=== PATIENT | female | born 1960 | race Two or more races ===

== ENCOUNTER → 2017-03-08 | Outpatient (CLI) | payer MEDICARE ==
[~2017-03-08] MED LIST: ACYC-114 PO; AMIL5TAB2 PO; AMIT25TA PO; AMLO10TA2 PO; BUSP10TA PO; CELE200C PO; CITA10TA4 PO; CITA40TA5 PO; ESTR1TAB15 PO; FOLI-17 PO; HYDR-3144 PO; HYDR-3240 PO; LEVO100V PO; LEVO150T5 PO; LOSA100T6 PO; LOSA1TAB17 PO; METH2.5T PO; METH2.5T25 PO; NABU750T PO; OMEP-110 PO; POTA10TA5 PO; POTA20TA6 PO; POTASSIUM 10MEQ; PRED5TAB PO; PRED5TAB19 PO; RITU10VI IV; TOCI162D SC; TRAM50TA2 PO; VALA500T PO; [UNRECOGNIZED DRUG - OTHER]; lovastatin PO
[2017-03-08 12:50] LABS: ASPARTATE AMINO TRANSFERASE 22 U/L (15-37); BLOOD UREA NITROGEN 12 mg/dL (7-18)
== END | disposition home or self-care (01) ==
LOC: STAR 11:14 → MERGE 11:30
PROVIDERS: ATTEND Neurological Surgery
DX: Z01.818 Encounter for other preprocedural examination (principal); I77.810 Thoracic aortic ectasia; M51.36 Other intervertebral disc degeneration, lumbar region; M51.37 Other intervertebral disc degeneration, lumbosacral region; R79.1 Abnormal coagulation profile
CPT/HCPCS: 36415; 71020; 80053; 81003; 85025; 85610; 85730; 93005

== ENCOUNTER 2017-03-15 09:10 | Inpatient (IN) | payer MEDICARE ==
[~2017-03-15] VITALS: Ht 160 cm; Wt 96.7 kg
[~2017-03-15 09:10] MED LIST changes: +BACITRACIN 50,000 UNIT ONE; +BUPIVACAINE/PF 0.25% ONE; +BUPIVACAINE/PF-EPI 0.5% 1:200K ONE; +THROMBIN 5,000 UNIT VIAL TP ONE
[2017-03-15] MEDS ORDERED: LACTATED RINGERS 1,000 ML IV SCH (10:28)
[2017-03-15 10:29] VITALS: BP 128/80
[2017-03-15] MEDS ORDERED: FENTANYL PF 250 MCG/5ML ONE (11:10)
[2017-03-15] MEDS ORDERED: MIDAZOLAM 1 MG/ML, 2ML ONE (11:10)
[2017-03-15] MEDS ORDERED: HYDROCORTISONE 100 MG INJ. ONE (12:29)
[2017-03-15] MEDS ORDERED: ONDANSETRON 2MG/ML, 2ML ONE (12:30)
[2017-03-15] MEDS ORDERED: ROCURONIUM 10 MG/ML ONE (12:30)
[2017-03-15] MEDS ORDERED: CEFAZOLIN 1,000 MG ONE (12:30)
[2017-03-15] MEDS ORDERED: PROPOFOL 10 MG/ML, 20ML ONE (12:30)
[2017-03-15] MEDS ORDERED: BUPIVACAINE/PF-EPI 0.5% 1:200K INFIL ONE (13:10)
[2017-03-15] MEDS ORDERED: FENTANYL PF 100 MCG/2ML EPIDPUSH ONE (13:11)
[2017-03-15] MEDS ORDERED: FENTANYL PF 100 MCG/2ML ONE (14:10)
[2017-03-15] MEDS ORDERED: PROMETHAZINE 25 MG/ML, 1ML IV PRN (16:00)
[2017-03-15] MEDS ORDERED: PHARMACY MAY ADJ FOR RENAL FX MC PRN (16:00)
[2017-03-15] MEDS ORDERED: LABETALOL 5MG/ML, 20ML IVPush PRN (16:00)
[2017-03-15] MEDS ORDERED: DIPHENHYDRAMINE 50 MG/ML, 1ML IVPush PRN (16:00)
[2017-03-15] MEDS ORDERED: LABETALOL 5MG/ML, 20ML IV PRN (16:00)
[2017-03-15] MEDS ORDERED: MEPERIDINE/PF 25MG/0.5ML IVPush PRN (16:00)
[2017-03-15] MEDS ORDERED: HYDROmorphone 2 MG/ML, 1ML IM PRN (16:00)
[2017-03-15] MEDS ORDERED: ONDANSETRON 2MG/ML, 2ML IVPush PRN ×2 (16:00)
[2017-03-15] MEDS ORDERED: HYDROcodone/APAP 5/325 TABLET PO PRN (16:00)
[2017-03-15] MEDS ORDERED: PROMETHAZINE 25 MG/ML, 1ML IM PRN (16:00)
[2017-03-15] MEDS ORDERED: HYDROmorphone 1 MG/ML, 1ML IV PRN (16:00)
[2017-03-15] MEDS ORDERED: BISACODYL 10 MG SUPP PR PRN (16:00)
[2017-03-15] MEDS ORDERED: FENTANYL PF 100 MCG/2ML IV PRN (16:00)
[2017-03-15] MEDS ORDERED: HYDROcodone/APAP 10/325 MG TABLET PO PRN (16:00)
[2017-03-15] MEDS ORDERED: OXYcodone 5 MG/5 ML ORAL.SOL UDC PO PRN (16:00)
[2017-03-15] MEDS ORDERED: SENNA/DOCUSATE TABLET PO PRN (16:00)
[2017-03-15] MEDS ORDERED: hydrALAzine 20 MG/ML, 1ML IV PRN (16:00)
[2017-03-15] MEDS ORDERED: ACETAMINOPHEN 325 MG TABLET PO PRN (16:00)
[2017-03-15] MEDS ORDERED: OXYcodone/APAP 5/325MG TABLET PO PRN (16:00)
[2017-03-15] MEDS ORDERED: OXYcodone 5 MG/5 ML ORAL.SOL UDC ONE (16:30)
[2017-03-15] MEDS: NS + 20MEQ KCL 1,000 ML IV SCH (18:17)
[2017-03-15] MEDS: CEFAZOLIN PMX 1GM/50ML 50 ML IVPB SCH (18:18)
[2017-03-15] MEDS: METHOTREXATE MC SCH (18:37)
[2017-03-15 20:28] VITALS: BP 122/71
[2017-03-15] MEDS: VALACYCLOVIR 500MG TABLET PO SCH (22:25)
[2017-03-15] MEDS: SODIUM CHLORIDE FLUSH 10ML SYR IVF SCH (22:25)
[2017-03-15 23:05] VITALS: BP 111/74
[2017-03-16] MEDS: METHOCARBAMOL 750 MG TABLET PO PRN ×3 (01:05→17:09)
[2017-03-16] MEDS: HYDROmorphone 2MG TABLET PO PRN ×8 (01:05→20:57)
[2017-03-16] MEDS: METHOTREXATE MC SCH ×3 (02:00→11:38)
[2017-03-16] MEDS: CEFAZOLIN PMX 1GM/50ML 50 ML IVPB SCH (02:21)
[2017-03-16 03:52] VITALS: BP 136/88
[2017-03-16] MEDS: LEVOTHYROXINE 150 MCG TABLET PO SCH (05:14)
[2017-03-16] MEDS: NS + 20MEQ KCL 1,000 ML IV SCH (06:26)
[2017-03-16 06:55] VITALS: BP 113/60
[2017-03-16] MEDS ORDERED: MORPHINE SULFATE 4 MG/ML, 1ML IV PRN ×2 (08:30)
[2017-03-16] MEDS ORDERED: METHOTREXATE 2.5 MG TABLET PO SCH (09:00)
[2017-03-16] MEDS: SODIUM CHLORIDE FLUSH 10ML SYR IVF SCH ×2 (09:09→20:57)
[2017-03-16] MEDS: FOLIC ACID 1 MG TABLET PO SCH (09:13)
[2017-03-16] MEDS: CITALOPRAM 20 MG TABLET PO SCH (09:13)
[2017-03-16] MEDS: BUSPIRONE 10 MG TABLET PO SCH (09:13)
[2017-03-16] MEDS: POTASSIUM CHLORIDE 10 MEQ TABLET.ER PO SCH (09:14)
[2017-03-16] MEDS: AMILORIDE 5 MG TABLET PO SCH (09:15)
[2017-03-16] MEDS: AMLODIPINE 5 MG TABLET PO SCH (09:15)
[2017-03-16] MEDS ORDERED: DEXAMETHASONE 4 MG/ML, 1ML IV ONE ×2 (10:00→18:00)
[2017-03-16 13:36] VITALS: BP 108/61
[2017-03-16] MEDS ORDERED: NS + 20MEQ KCL 1,000 ML IV SCH (15:00)
[2017-03-16 18:53] VITALS: BP 141/81
[2017-03-16] MEDS: VALACYCLOVIR 500MG TABLET PO SCH (20:57)
[2017-03-17] MEDS: METHOCARBAMOL 750 MG TABLET PO PRN ×3 (00:37→17:46)
[2017-03-17] MEDS: HYDROmorphone 2MG TABLET PO PRN ×7 (00:37→22:11)
[2017-03-17 00:46] VITALS: BP 108/66
[2017-03-17] MEDS: METHOTREXATE MC SCH ×4 (01:49→23:36)
[2017-03-17] MEDS: LEVOTHYROXINE 150 MCG TABLET PO SCH (06:44)
[2017-03-17 07:33] VITALS: BP 118/67
[2017-03-17] MEDS: AMILORIDE 5 MG TABLET PO SCH (09:00)
[2017-03-17] MEDS: CITALOPRAM 20 MG TABLET PO SCH (09:14)
[2017-03-17] MEDS: BUSPIRONE 10 MG TABLET PO SCH (09:14)
[2017-03-17] MEDS: FOLIC ACID 1 MG TABLET PO SCH (09:15)
[2017-03-17] MEDS: POTASSIUM CHLORIDE 10 MEQ TABLET.ER PO SCH (09:16)
[2017-03-17] MEDS: AMLODIPINE 5 MG TABLET PO SCH (09:16)
[2017-03-17] MEDS: SODIUM CHLORIDE FLUSH 10ML SYR IVF SCH ×2 (09:19→22:07)
[2017-03-17 12:43] VITALS: BP 122/73
[2017-03-17 18:37] VITALS: BP 104/64
[2017-03-17] MEDS ORDERED: DIPHENHYDRAMINE 25 MG CAPSULE ONE ×2 (20:23→22:04)
[2017-03-17] MEDS: DIPHENHYDRAMINE 50 MG CAPSULE PO PRN ×2 (20:24→22:06)
[2017-03-17] MEDS: VALACYCLOVIR 500MG TABLET PO SCH (22:05)
[2017-03-18] MEDS: METHOCARBAMOL 750 MG TABLET PO PRN (01:23)
[2017-03-18] MEDS: HYDROmorphone 2MG TABLET PO PRN ×4 (01:23→14:17)
[2017-03-18 01:51] VITALS: BP 110/69
[2017-03-18] MEDS: LEVOTHYROXINE 150 MCG TABLET PO SCH (06:40)
[2017-03-18 06:52] VITALS: BP 113/72
[2017-03-18] MEDS: AMLODIPINE 5 MG TABLET PO SCH (10:03)
[2017-03-18] MEDS: BUSPIRONE 10 MG TABLET PO SCH (10:03)
[2017-03-18] MEDS: POTASSIUM CHLORIDE 10 MEQ TABLET.ER PO SCH (10:03)
[2017-03-18] MEDS: FOLIC ACID 1 MG TABLET PO SCH (10:03)
[2017-03-18] MEDS: CITALOPRAM 20 MG TABLET PO SCH (10:03)
[2017-03-18] MEDS: AMILORIDE 5 MG TABLET PO SCH (10:04)
[2017-03-18] MEDS: METHOTREXATE MC SCH ×2 (10:04→10:33)
[2017-03-18] MEDS: SODIUM CHLORIDE FLUSH 10ML SYR IVF SCH (10:11)
[2017-03-18] MEDS ORDERED: METH750T2 PO (12:27)
[2017-03-18] MEDS ORDERED: HYDR2TAB40 PO (12:27)
[2017-03-18] MEDS ORDERED: METH750T87 PO (12:56)
[2017-03-18] MEDS ORDERED: DOXY100C2 PO (12:58)
[2017-03-18 13:33] VITALS: BP 120/78
== END 2017-03-18 14:15 | disposition home or self-care (01) | DRG 459 ==
LOC: ORIP 09:10 → MERGE 15:30 → 4NOR 17:11
PROVIDERS: ADMIT Neurological Surgery; ATTEND Neurological Surgery
PROC: 0SG30A1 (ICD-10-PCS; 2017-03-15)
PROC: 0SG00A1 (ICD-10-PCS; 2017-03-15)
PROC: 0SB20ZZ Excision of Lumbar Vertebral Disc, Open Approach (ICD-10-PCS; 2017-03-15)
PROC: 0SG00AJ Fusion of Lumbar Vertebral Joint with Interbody Fusion Device, Posterior Approach, Anterior Column, Open Approach (ICD-10-PCS; principal; 2017-03-15 12:30)
DX: M48.06 Spinal stenosis, lumbar region (principal); J96.20 Acute and chronic respiratory failure, unspecified whether with hypoxia or hypercapnia; I10 Essential (primary) hypertension; M43.16 Spondylolisthesis, lumbar region; M48.07 Spinal stenosis, lumbosacral region; F41.9 Anxiety disorder, unspecified; M19.90 Unspecified osteoarthritis, unspecified site; M51.17 Intervertebral disc disorders with radiculopathy, lumbosacral region; F32.9 Major depressive disorder, single episode, unspecified; Z90.10 Acquired absence of unspecified breast and nipple; Z88.2 Allergy status to sulfonamides; Z82.49 Family history of ischemic heart disease and other diseases of the circulatory system; Z82.3 Family history of stroke; Z98.1 Arthrodesis status; Z83.3 Family history of diabetes mellitus
CPT/HCPCS: 36415; 72100; 86850; 86900; C1713; J0690; J1100; J1170; J2250; J2405; J2704; J3010; J3480; J3490; C1751; C1762; J1200; J1720; J7120; J7512